=== PATIENT | female | born 1950 | race Caucasian/White ===

== ENCOUNTER → 2016-12-25 | Outpatient (CLI) | payer MEDICARE, OTHER ==
--- NOTE | 2016-12-26 09:02 | RADRPT ---
PROCEDURE: Left knee x-ray CLINICAL INDICATION: PAIN TECHNIQUE: AP, PA, lateral and sunrise views of the left knee were obtained. 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 N o evidence of acute fractures or dislocations. The bony mineralization is normal. No focal bony bl astic or lytic lesions. No evidence of erosions. No evidence of left knee joint effusion. 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 RPTAT:AAJJ Physician Shiv Date Time Electronically viewed and signed by Physician Shiv on 12/26/2016 09:02 /
== END | disposition home or self-care (01) ==
LOC: HKI 14:52
PROVIDERS: ATTEND Orthopaedic Surgery
DX: I87.2 Venous insufficiency (chronic) (peripheral) (principal); M25.562 Pain in left knee; M51.36 Other intervertebral disc degeneration, lumbar region; M54.16 Radiculopathy, lumbar region; E03.9 Hypothyroidism, unspecified; E66.9 Obesity, unspecified
CPT/HCPCS: 73564; G0463